=== PATIENT | male | born 2005 | race Caucasian/White ===

== ENCOUNTER 2024-04-26 09:30 | Day surgery (SDC) | payer MEDICAID ==
[~2024-04-26] VITALS: Ht 172.7 cm; Wt 63.4 kg
[~2024-04-26 09:30] MED LIST: FERR236T3 PO
[2024-04-26 09:55] VITALS: BP 128/76; PULSE 66; RESP 16
[2024-04-26] MEDS ORDERED: fentaNYL/PF 50MCG/1 ML 2ML syringe ONE (10:46)
[2024-04-26] MEDS ORDERED: midazolam 1 mg/ML 2ml injection ONE (10:46)
[2024-04-26] MEDS ORDERED: propofol inj 20 ML IV ONE (10:54)
[2024-04-26 11:15] VITALS: BP 84/44; PULSE 67; RESP 11; O2SAT 100
[2024-04-26 11:25] VITALS: BP 88/49; PULSE 61; RESP 12; O2SAT 100
[2024-04-26 11:35] VITALS: BP 96/60; PULSE 62; RESP 13; O2SAT 100
[2024-04-26 11:45] VITALS: BP 109/69; PULSE 57; RESP 13; O2SAT 100
[2024-04-26 11:55] VITALS: BP 110/70; PULSE 60; RESP 14; O2SAT 100
== END 2024-04-26 11:55 | disposition home or self-care (01) ==
LOC: GI LAB 09:30
PROVIDERS: ATTEND Internal Medicine Gastroenterology
DX: R19.5 Other fecal abnormalities (principal); D50.0 Iron deficiency anemia secondary to blood loss (chronic); K29.50 Unspecified chronic gastritis without bleeding; D64.9 Anemia, unspecified; Z79.899 Other long term (current) drug therapy
CPT/HCPCS: 43239; 45378; J2250; J2704; J3010; J7030; Z7512

== ENCOUNTER 2024-11-17 11:14 | Emergency (ER) | payer MEDICAID ==
[~2024-11-17] VITALS: Ht 172.7 cm; Wt 65.9 kg
[2024-11-17 11:19] VITALS: BP 130/82; PULSE 94; TEMP 98.1
[2024-11-17 13:41] LABS: STREP A SCREEN NEGATIVE (Neg)
[2024-11-17 14:16] VITALS: RESP 20; O2SAT 98
--- NOTE | 2024-11-17 18:02 | Physician Documentation ---
History of Present Illness ~ Chief Complaint: Sore Throat Stated Complaint: THROAT PAIN Time Seen by MD: 12:34 OK to notify your PCP?: Yes Primary Medical Doctor: [facility] Source: patient Mode of Arrival: POV Exam Limitations: no limitations HPI 19-year-old male with chief complaint sore throat for seven days. He states his girlfriend had similar symptoms and tested for COVID and strep were negative but ultimately was treated with amoxicillin. Patient states he has never had a sore throat like this in his life he states he feels like he is swallowing razor blades. No fever, chills, difficulty swallowing, cough or shortness of breath. Medication Reconciliation Allergies: Coded Allergies: No Known Allergies (Unverified , 11/17/24) Scheduled Ferrous Gluconate (Iron), 1 TAB PO DAILY, (Reported) Past Medical History Past Medical History: *GI/HEPATOBILIARY* Past Surgical History: abdominal surgery, colectomy Smoking Status: Unknown if ever smoked Drug Use: none Lives with: Family Lives In: Home Occupation: student Review of Systems All Other Systems at this time: Reviewed and Negative Physical Exam Vital Signs: Temperature: 98.1, Heart Rate: 94, Respiratory Rate: 20, BP: 130/82, Pulse Oximetry: 98, Weight: 65.910 Physical Exam General Appearance: Alert, WD/WN. NAD. HEENT: NCAT, PERRL, EOMI. Erythematous posterior pharyngeal wall no exudate, tonsils 2+ uvula midline Neck: Supple, trachea midline. Bilateral submandibular lymphadenopathy with tenderness to palpation Cardiovascular: RRR. No m/r/g. Lungs: CTAB. Breathing unlabored Extremities: Normal inspection. No edema. Skin: Warm/dry, normal color Neurological: Alert and oriented x4, normal gait. Psychiatric: Affect congruent with mood. General Appearance: alert Progress Results/Orders Results/Orders Orders - RANJAN GARCIA Covid19 Binax Poc Result Entry (11/17/24 13:11) Cult Throat + R/O Beta Strep (11/17/24 13:41) Completed Orders - RANJAN GARCIA Strep A Rapid (11/17/24 13:11) Vital Signs 11/17/24 11/17/24 11:19 14:16 Temp 98.1 Pulse 94 Resp 18 20 B/P (MAP) 130/82 Pulse Ox 98 98 Laboratory Tests Test 11/17/24 13:20 11/17/24 13:21 SARS-CoV-2 Antigen (Rapid) Negative Group A Streptococcus Rapid Negative Medical Decision Making Throat Diff Dx: Considerations: Include: AIDS, Epiglottitis, Esophageal candidiasis, Hand foot mouth disease, Herpangina, Herpetic stomatitis, Herpes simplex, Infection mononucleosis, Immunodeficiency, Leonardo's angina, Peritonsillar abscess, Peritonsillar cellulitis, Pharyngitis-diphtheria, Phary ngitis-strepococcal, Pharyngitis-viral, Thrush, URI Departure Disposition: LEFT AGAINST MEDICAL ADVICE Impression: Primary Impression: Sore throat Additional Instructions: pt left prior to getting results, we did end up calling him and reporting results negative and conservative tx recommended and to return if worsens Referrals: NO PRIMARY CARE PROVIDER (PCP) Signature Scribe Signature: x Attestation: RANJAN Dos Santos Nov 17, 2024 18:02
== END 2024-11-17 13:47 | disposition left against medical advice (07) ==
LOC: ER 11:15
DX: J02.9 Acute pharyngitis, unspecified (principal); Z20.822 Contact with and (suspected) exposure to COVID-19
CPT/HCPCS: 36415; 87081; 87811; 87880; 99283